=== PATIENT | female | born 1960 | race African-American/Black ===

== ENCOUNTER 2019-03-19 22:15 | Emergency (ER) | payer SELFPAY ==
[~2019-03-19] VITALS: Ht 167.6 cm; Wt 71.7 kg
[2019-03-19 22:28] VITALS: Ht 167.6 cm; Wt 71.7 kg
[2019-03-19 23:09] LABS: BASOPHILS 0.3 % (0-2); EOSINOPHILS 2.6 % (0-7); HEMATOCRIT 42.3 % (36.0-48.0); IMMATURE GRANULOCYTES 0.3 % (0-5); LYMPHOCYTES 41.6 % (15-50); MCH 30.2 pg (26.0-34.0); MCHC 33.1 g/dL (31.0-37.0); MCV 91.4 fL (80.0-100.0); MEAN PLATELET VOLUME 10.1 fL (7.4-10.4); MONOCYTES 10.2 % (2-11); PLATELET COUNT 252 10x3/uL (130-400); RBC 4.63 10x6/uL (4.00-5.40); WBC 6.2 10x3/uL (4.8-10.8)
[2019-03-19 23:27] LABS: ALBUMIN 3.6 g/dL (3.4-5.0); ALKALINE PHOSPHATASE 77 U/L (46-116); ALT (SGPT) 20 U/L (10-68); BILIRUBIN - TOTAL 0.22 mg/dL (0.2-1.3); CALC OSMOLALITY 283 mosm/kg (275-300); CALCIUM 8.9 mg/dL (8.5-10.1); CARBON DIOXIDE 28.2 mmol/L (21.0-32.0); CHLORIDE - SERUM 108 mmol/L (98-107); CREATININE - SERUM 0.7 mg/dL (0.6-1.3); GLUCOSE 103 mg/dL (74-106); POTASSIUM - SERUM 4.4 mmol/L (3.5-5.1); PROTEIN - SERUM 8.3 g/dL (6.4-8.2); SODIUM 143 mmol/L (136-145); UREA NITROGEN 10 mg/dL (7-18); eGFR NON AFRICAN AMERICAN 90 mL/min (90-120)
[2019-03-19 23:37] LABS: APPEARANCE CLEAR (CLEAR); BILIRUBIN NEGATIVE (NEGATIVE); COLOR YELLOW (YELLOW); GLUCOSE NEGATIVE (NEGATIVE); KETONE SMALL mg/dL (NEGATIVE); NITRITE NEGATIVE (NEGATIVE); PROTEIN NEGATIVE (NEGATIVE); SPECIFIC GRAVITY 1.005 (1.005-1.020); UROBILINOGEN NORMAL (NORMAL)
[2019-03-20] MEDS ORDERED: BENTYL 20 MG TA20 MG PO (00:53)
[2019-03-20] MEDS ORDERED: LOMOTIL 2.5-0.1 EAC1 PO (00:53)
[2019-03-20 02:03] VITALS: BP 171/85
== END 2019-03-20 02:04 | disposition home or self-care (01) ==
LOC: D.ER 22:15
PROVIDERS: Family Medicine
DX: R19.7 Diarrhea, unspecified (principal); B34.9 Viral infection, unspecified